=== PATIENT | male | born 1960 ===

== ENCOUNTER 2017-03-30 07:33 | Observation (INO) | payer OTHER ==
[~2017-03-30] VITALS: Ht 175.3 cm; Wt 78.5 kg
[2017-03-30 07:37] VITALS: BP 168/98; PULSE 60; RESP 16; TEMP 98; O2SAT 98
[2017-03-30] MEDS ORDERED: SODIUM CHLORIDE 0.9% FLUSH 10 ML FLUSH IVF PRN (07:45)
--- NOTE | 2017-03-30 07:49 | PD ---
HPI Chief Complaint: chest pain Time Seen by Provider: 07:36 Travel History International Travel<30 days: No Contact w/Intl Traveler<30days: No History of Present Illness HPI 56 y/o male presents with central chest pain that started this morning and lasted a couple minutes. He states he has had a couple episodes a week of this over the past couple of months. He states he has not seen a physician for this. He denies any prior cardiac workup. He denies taking an aspirin today. His cardiac risk factors are high cholesterol and age. He denies specific modifying factors. He denies any other concurrent complaints. He does note having stress currently. PFSH Past Medical History High Cholesterol: Yes Past Surgical History Other Surgery: Yes (carotid) Family History Narrative Family History high cholesterol and hypertension Family Myocardial Infarction: No Social History Tobacco Use: No Substance Use: No Allergies-Medications (Allergen,Severity, Reaction): Coded Allergies: Bdisexm-Aer-Cpt Reductase Inhibitor (Verified Allergy, Unknown, 03/30/17) Reported Meds & Prescriptions Reported Meds & Active Scripts Active No Active Prescriptions or Reported Medications Review of Systems Except as stated in HPI: all other systems reviewed are Neg Physical Exam Narrative GENERAL: Well-nourished, well-developed patient. Well-appearing SKIN: Warm and dry. HEAD: Normocephalic and atraumatic. EYES: No injection or drainage. ENT: No nasal drainage noted. NECK: Supple, trachea midline. CARDIOVASCULAR: Regular rate and rhythm RESPIRATORY: Breath sounds equal bilaterally. No accessory muscle use. GASTROINTESTINAL: Abdomen soft, non-tender, nondistended. EXTREMITIES: No significant edema NEUROLOGICAL: Awake and alert. Motor and sensory grossly within normal limits. Normal speech. Data Data Last Documented VS Vital Signs Date Time Temp Pulse Resp B/P (MAP) Pulse Ox O2 Delivery O2 Flow Rate FiO2 03/30/17 09:49 99 Room Air 03/30/17 09:49 64 16 03/30/17 07:37 98.0 Orders Orders Electrocardiogram (03/30/17 07:44) Ckmb (Isoenzyme) Profile (03/30/17 07:44) Complete Blood Count With Diff (03/30/17 07:44) Comprehensive Metabolic Panel (03/30/17 07:44) Magnesium (Mg) (03/30/17 07:44) Prothrombin Time / Inr (Pt) (03/30/17 07:44) Act Partial Throm Time (Ptt) (03/30/17 07:44) Troponin I (03/30/17 07:44) Chest, Single Ap (03/30/17 07:44) Ecg Monitoring (03/30/17 07:44) Bilateral Bp Monitoring (03/30/17 07:44) Iv Access Insert/Monitor (03/30/17 07:44) Oximetry (03/30/17 07:44) Sodium Chloride 0.9% Flush (Ns Flush) (03/30/17 07:45) CKMB (03/30/17 07:40) CKMB% (03/30/17 07:40) Ct Pulmonary Angiogram (03/30/17 ) Iohexol 350 Inj (Omnipaque 350 Inj) (03/30/17 09:37) Admit Order (Ed Use Only) (03/30/17 10:01) Labs Laboratory Tests Test 03/30/17 07:40 White Blood Count 4.7 TH/MM3 Red Blood Count 5.43 MIL/MM3 Hemoglobin 15.6 GM/DL Hematocrit 48.8 % Mean Corpuscular Volume 89.9 FL Mean Corpuscular Hemoglobin 28.8 PG Mean Corpuscular Hemoglobin Concent 32.0 % Red Cell Distribution Width 13.0 % Platelet Count 196 TH/MM3 Mean Platelet Volume 7.7 FL Neutrophils (%) (Auto) 56.6 % Lymphocytes (%) (Auto) 30.1 % Monocytes (%) (Auto) 8.9 % Eosinophils (%) (Auto) 3.1 % Basophils (%) (Auto) 1.3 % Neutrophils # (Auto) 2.7 TH/MM3 Lymphocytes # (Auto) 1.4 TH/MM3 Monocytes # (Auto) 0.4 TH/MM3 Eosinophils # (Auto) 0.1 TH/MM3 Basophils # (Auto) 0.1 TH/MM3 CBC Comment DIFF FINAL Differential Comment Prothrombin Time 10.7 SEC Prothromb Time International Ratio 1.1 RATIO Activated Partial Thromboplast Time 24.2 SEC Blood Urea Nitrogen 13 MG/DL Creatinine 0.94 MG/DL Random Glucose 98 MG/DL Total Protein 7.5 GM/DL Albumin 4.0 GM/DL Calcium Level 8.9 MG/DL Magnesium Level 2.0 MG/DL Alkaline Phosphatase 95 U/L Aspartate Amino Transf (AST/SGOT) 21 U/L Alanine Aminotransferase (ALT/SGPT) 26 U/L Total Bilirubin 0.3 MG/DL Sodium Level 140 MEQ/L Potassium Level 3.8 MEQ/L Chloride Level 104 MEQ/L Carbon Dioxide Level 29.1 MEQ/L Anion Gap 7 MEQ/L Estimat Glomerular Filtration Rate 83 ML/MIN Total Creatine Kinase 132 U/L Creatine Kinase MB 0.9 NG/ML Troponin I LESS THAN 0.02 NG/ML MDM Medical Decision Making Medical Screen Exam Complete: Yes Emergency Medical Condition: Yes Medical Record Reviewed: Yes (past history confirmed) Interpretation(s) EKG is sinus rhythm without STEMI criteria CBC & BMP Diagram 03/30/17 07:40 Total Protein 7.5, Albumin 4.0, Calcium Level 8.9, Magnesium Level 2.0, Alkaline Phosphatase 95, Aspartate Amino Transf (AST/SGOT) 21, Alanine Aminotransferase (ALT/SGPT) 26, Total Bilirubin 0.3 Last 24 hours Impressions Chest X-Ray 03/30/17 0744 Signed Impressions: Service Date/Time: Thursday, March 30, 2017 08:03 - CONCLUSION: Spiculated density involving the left hilum warrants further characterization utilizing a CT scan of the thorax with IV contrast. Otherwise, unremarkable exam. Jaylen Nixon Jr., MD CT Angiography 03/30/17 0000 Signed Impressions: Service Date/Time: Thursday, March 30, 2017 09:25 - CONCLUSION: 1. No acute infiltrate or pulmonary embolus to explain current clinical symptoms. 2. Minimal dependent atelectatic changes in both hemithoraces. Atherosclerotic calcification of the coronary arteries. Rajan White MD Discussed with radiologist that read chest x-ray and states given looking at CT there is no mass or density and this is likely where the pulmonary vein and artery are overlapping Differential Diagnosis Cardiac, musculoskeletal, gastritis Narrative Course Will check blood work, chest x-ray, EKG and dose with aspirin and reevaluate. Chest pain-free now. Patient updated about chest x-ray will proceed with CT chest Patient updated about CT and agrees to chest pain center observation Physician Communication Physician Communication dr ybarra agrees to admit Diagnosis Primary Impression: Chest pain Qualified Codes: R07.9 - Chest pain, unspecified Admitting Information Admitting Physician Requests: Observation Scripts No Active Prescriptions or Reported Meds Na Castañeda MD Mar 30, 2017 07:49
[2017-03-30 08:09] LABS: CHLORIDE 104 MEQ/L (98-107); POTASSIUM 3.8 MEQ/L (3.5-5.1); SODIUM (NA) 140 MEQ/L (136-145)
[2017-03-30 08:13] LABS: ANION GAP 7 MEQ/L (5-15); APTT (PATIENT) 24.2 SEC (24.3-30.1); BICARBONATE 29.1 MEQ/L (21.0-32.0); BLOOD UREA NITROGEN 13 MG/DL (7-18); INTERNATIONAL NORMALIZED RATIO 1.1 RATIO; PROTHROMBIN TIME - PATIENT 10.7 SEC (9.8-11.6)
[2017-03-30 08:16] LABS: ALT (GPT) 26 U/L (12-78)
[2017-03-30 08:17] LABS: AST (GOT) 21 U/L (15-37); GLOMERULAR FILTRATION RATE 83 ML/MIN (>89)
[2017-03-30 08:18] LABS: TOTAL BILIRUBIN ADULT 0.3 MG/DL (0.2-1.0)
[2017-03-30 08:19] LABS: ALKALINE PHOSPHATASE 95 U/L (45-117); CREATINE KINASE 132 U/L (39-308)
[2017-03-30 08:31] LABS: CKMB 0.9 NG/ML (0.5-3.6)
[2017-03-30 08:42] LABS: AUTOMATED NEUTROPHIL # 2.7 TH/MM3 (1.8-7.7); BASOPHIL # 0.1 TH/MM3 (0-0.2); BASOPHIL % 1.3 % (0.0-2.0); EOSINOPHIL # 0.1 TH/MM3 (0-0.4); EOSINOPHIL % 3.1 % (0.0-4.0); HEMATOCRIT 48.8 % (39.0-51.0); HEMO FLAGS DIFF FINAL; LYMPH % 30.1 % (9.0-44.0); LYMPHOCYTE # 1.4 TH/MM3 (1.0-4.8); MEAN CELL VOLUME 89.9 FL (80.0-100.0); MEAN CORPUSCULAR HEMOGLOBIN 28.8 PG (27.0-34.0); MONO % 8.9 % (0.0-8.0); NEUT % 56.6 % (16.0-70.0); PLATELET COUNT 196 TH/MM3 (150-450); RED BLOOD COUNT 5.43 MIL/MM3 (4.50-5.90); WHITE BLOOD COUNT 4.7 TH/MM3 (4.0-11.0)
--- NOTE | 2017-03-30 08:57 | RADRPT ---
EXAM DATE/TIME: 03/30/2017 08:03 [facility] COMPARISON: No previous studies available for comparison. INDICATIONS : Left upper chest pain. MEDICAL HISTORY : Hypercholesterolemia. SURGICAL HISTORY : Carotid. ENCOUNTER: Initial ACUITY: 1 day PAIN SCORE: 6/10 LOCATION: Left upper chest FINDINGS: A single frontal view the chest shows a 2.4 cm spiculated nodule like density involving the superior hilum on the left. The lungs are otherwise clear. No infiltrates or effusions. Heart normal size. Bon y structures are unremarkable. CONCLUSION: Spiculated density involving the left hilum warrants further characterization utilizing a CT scan of the thorax with IV contrast. Otherwise, unremarkable exam. Jaylen Nixon Jr., MD on March 30, 2017 at 8:53 Board Certified Radiologist. This report was verified electronically.
[2017-03-30] MEDS ORDERED: IOHEXOL 350 MG/ML 10 ML VIAL (for RAD DIAG) IVCONTRAST ONE (09:37)
--- NOTE | 2017-03-30 09:45 | RADRPT ---
EXAM DATE/TIME: 03/30/2017 09:25 [facility] COMPARISON: No previous studies available for comparison. INDICATIONS : Left chest pain intermittently for 2 months, worse today. IV CONTRAST: 75 cc Omnipaque 350 (iohexol) IV RADIATION DOSE: 13.14 CTDIvol (mGy) MEDICAL HISTORY : None SURGICAL HISTORY : Carotid endarterectomy. ENCOUNTER: Initial ACUITY: 2 months PAIN SCALE: 6/10 LOCATION: Left chest TECHNIQUE: Volumetric scanning of the chest was performed using a pulmonary embolism protocol MIP images were re constructed. Using automated exposure control and adjustment of the mA and/or kV according to patien t size, radiation dose was kept as low as reasonably achievable to obtain optimal diagnostic quality images. DICOM format image data is available electronically for review and comparison. Follow-up recommendations for detected pulmonary nodules are based at a minimum on nodule size and pa tient risk factors according to Fleischner Society Guidelines. FINDINGS: PULMONARY ARTERIES: No filling defects are seen in the pulmonary arteries through the segmental level. LUNGS: There is no consolidation or pneumothorax . No concerning pulmonary nodule is visualized. Minimal de pendent symmetric atelectasis. PLEURAE: There is no pleural thickening or pleural effusion. MEDIASTINUM: There is good visualization of the great vessels of the middle mediastinum. No evidence of mediastin al or hilar adenopathy/mass. Atherosclerotic calcification of the coronary arteries. MUSCULOSKELETAL: Within normal limits for patient age. MISCELLANEOUS: The visualized upper abdominal organs demonstrate no acute abnormality. CONCLUSION: 1. No acute infiltrate or pulmonary embolus to explain current clinical symptoms. 2. Minimal dependent atelectatic changes in both hemithoraces. Atherosclerotic calcification of the c oronary arteries. Rajan White MD on March 30, 2017 at 9:39 Board Certified Radiologist. This report was verified electronically.
[2017-03-30 09:49] VITALS: BP 145/92; PULSE 64; RESP 16; O2SAT 99
[2017-03-30] MEDS ORDERED: SODIUM CHLOR 0.9% 1000 ML INJ 1,000 ML IV SCH (10:08)
[2017-03-30] MEDS ORDERED: LACTULOSE SYRUP 20 GM/30 ML CUP PO PRN (10:15)
[2017-03-30] MEDS ORDERED: ACETAMINOPHEN 325 MG TAB PO PRN (10:15)
[2017-03-30] MEDS ORDERED: NALOXONE HCL 0.4 MG/ML AMP IV PUSH PRN (10:15)
[2017-03-30] MEDS ORDERED: ONDANSETRON HCL 4 MG/2 ML VIAL IVP PRN (10:15)
[2017-03-30] MEDS ORDERED: MAGNESIUM HYDROXIDE SUSP 30 ML CUP PO PRN (10:15)
[2017-03-30] MEDS ORDERED: BISACODYL 10 MG SUPP RECTAL PRN (10:15)
[2017-03-30] MEDS ORDERED: SODIUM CHLORIDE 0.9% FLUSH 10 ML FLUSH IV FLUSH PRN (10:15)
[2017-03-30] MEDS ORDERED: SENNOSIDES 8.6 MG TAB PO PRN (10:15)
[2017-03-30 11:15] VITALS: BP 174/79; PULSE 57; RESP 18; TEMP 96.7; O2SAT 98
[2017-03-30 12:30] VITALS: BP 142/84; PULSE 53
--- NOTE | 2017-03-30 13:43 | HHI.HP ---
[facility] Service [facility] ([place], [place])ists Primary Care Physician Carlos Dukes MD Admission Diagnosis chest pain Diagnoses: (1) Chest pain Chief Complaint: Chest pain Travel History International Travel<30 Days: No Contact w/Intl Traveler <30 Da: No Traveled to Known Affected Are: No History of Present Illness 56-year-old male with known history of hyperlipidemia who presented to hospital because of chest discomfort. Patient indicates that he is been having intermittent chest discomfort located in the left sternal border described as a sharp stabbing discomfort that lasts for approximately 1-2 minutes at a time. Can happen during exertion or at rest. Without any associated nausea, vomiting, shortness of breath, dyspnea, lightheadedness, dizziness, diaphoresis, radiation of pain to the neck, shoulder, arm. Patient is in rather great physical condition. He does work at approximate 4 times weekly at [employer]. He denies any episodes during exercise or activity. Patient states that he was stressed out coming to work this morning and he had the same pain that continued longer than the usual 1-2 minutes. Since he was close to the hospital he decided to come in and get it checked out. Patient had unremarkable workup with risk factors to include age, family history, hyperlipidemia. Is recommended by ER physician that the patient be observed in the chest pain center. Review of Systems Cardiovascular: COMPLAINS OF: Chest pain Except as stated in HPI: all other systems reviewed are Neg Past Family Social History Past Medical History Hyperlipidemia Past Surgical History Left carotid endarterectomy Reported Medications Reported Meds & Active Scripts Active No Active Prescriptions or Reported Medications Allergies: Coded Allergies: Ozgntry-Bmc-Bfq Reductase Inhibitor (Verified Allergy, Unknown, 03/30/17) Family History Reviewed is significant for family history of hypertension and hyperlipidemia Social History Patient quit smoking 15 years ago, prior to that he smoked one pack a cigarettes a day since he was 15 years old. Does drink alcohol occasionally. Denies any illicit drugs Physical Exam Vital Signs Vital Signs Date Time Temp Pulse Resp B/P (MAP) Pulse Ox O2 Delivery O2 Flow Rate FiO2 03/30/17 12:30 53 142/84 (103) 03/30/17 11:15 96.7 57 18 174/79 (110) 98 03/30/17 11:10 03/30/17 09:49 99 Room Air 03/30/17 09:49 99 Room Air 03/30/17 09:49 64 16 145/92 (109) 99 Room Air 03/30/17 09:49 64 16 145/92 (109) 99 Room Air 03/30/17 07:37 98.0 60 16 168/98 (121) 98 Physical Exam GENERAL: Well-developed, well-nourished, in no acute distress. alert and orientated HEENT: Head is normocephalic without any lesions or masses noted. Facial features are symmetric. Eyes: Pupils equal round reactive to light. Extraocular muscles are intact. Conjunctivae were clear. Oropharyngeal: Pharynx without any erythema edema. Tongue is midline without deviation. Buccal mucosa is moist without any masses or lesions NECK: Supple without any masses. Trachea midline no deviation. No JVD, no bruits are appreciated CARDIAC: Regular rhythm, regular rate. S1/S2 are heard. No murmurs gallops or rubs. LUNGS: Clear to auscultation bilaterally. No wheeze, rhonchi or rales. No use of accessory muscles on inspiration or expiration. ABDOMEN: Soft, nontender. Nondistended. Bowel sounds heard in all 4 quadrants. No organomegaly or masses. Negative rebound, negative guarding EXTREMITIES: No edema, pulses are equal bilaterally. No cyanosis or clubbing NEUROLOGY: Mood and affect appear appropriate. Cranial nerves II through XII grossly intact. Muscle strength 5/5 in upper and lower extremities bilaterally. Deep tendon reflexes are 2+ in upper and lower extremities bilaterally. Laboratory Laboratory Tests Test 03/30/17 07:40 03/30/17 10:40 03/30/17 12:50 White Blood Count 4.7 Red Blood Count 5.43 Hemoglobin 15.6 Hematocrit 48.8 Mean Corpuscular Volume 89.9 Mean Corpuscular Hemoglobin 28.8 Mean Corpuscular Hemoglobin Concent 32.0 Red Cell Distribution Width 13.0 Platelet Count 196 Mean Platelet Volume 7.7 Neutrophils (%) (Auto) 56.6 Lymphocytes (%) (Auto) 30.1 Monocytes (%) (Auto) 8.9 Eosinophils (%) (Auto) 3.1 Basophils (%) (Auto) 1.3 Neutrophils # (Auto) 2.7 Lymphocytes # (Auto) 1.4 Monocytes # (Auto) 0.4 Eosinophils # (Auto) 0.1 Basophils # (Auto) 0.1 CBC Comment DIFF FINAL Differential Comment Prothrombin Time 10.7 Prothromb Time International Ratio 1.1 Activated Partial Thromboplast Time 24.2 Blood Urea Nitrogen 13 Creatinine 0.94 Random Glucose 98 Total Protein 7.5 Albumin 4.0 Calcium Level 8.9 Magnesium Level 2.0 Alkaline Phosphatase 95 Aspartate Amino Transf (AST/SGOT) 21 Alanine Aminotransferase (ALT/SGPT) 26 Total Bilirubin 0.3 Sodium Level 140 Potassium Level 3.8 Chloride Level 104 Carbon Dioxide Level 29.1 Anion Gap 7 Estimat Glomerular Filtration Rate 83 Total Creatine Kinase 132 Creatine Kinase MB 0.9 Troponin I LESS THAN 0.02 LESS THAN 0.02 LESS THAN 0.02 Result Diagram: 03/30/17 0740 03/30/17 0740 Imaging Last Impressions Chest X-Ray 03/30/17 0744 Signed Impressions: Service Date/Time: Thursday, March 30, 2017 08:03 - CONCLUSION: Spiculated density involving the left hilum warrants further characterization utilizing a CT scan of the thorax with IV contrast. Otherwise, unremarkable exam. Jaylen Nixon Jr., MD CT Angiography 03/30/17 0000 Signed Impressions: Service Date/Time: Thursday, March 30, 2017 09:25 - CONCLUSION: 1. No acute infiltrate or pulmonary embolus to explain current clinical symptoms. 2. Minimal dependent atelectatic changes in both hemithoraces. Atherosclerotic calcification of the coronary arteries. MD Edward Duvalli VTE Risk Assessment Caprini VTE Risk Assessment: No/Low Risk (score <= 1) Caprini Risk Assessment Model Point Value = 1 Point Value = 2 Point Value = 3 Point Value = 5 Age 41-60 Minor surgery BMI > 25 kg/m2 Swollen legs Varicose veins or History of unexplained or recurrent spontaneous Oral contraceptives or hormone replacement Sepsis (< 1 month) Serious lung disease, including pneumonia (< 1 month) Abnormal pulmonary function Acute myocardial infarction Congestive heart failure (< 1 month) History of inflammatory bowel disease Medical patient at bed rest Age 61-74 Arthroscopic surgery Major open surgery (> 45 min) Laparoscopic surgery (> 45 min) Malignancy Confined to bed (> 72 hours) Immobilizing plaster cast Central venous access Age >= 75 History of VTE Family history of VTE Factor V Leiden Prothrombin [id number] Lupus anticoagulant Anticardiolipin antibodies Elevated serum homocysteine Heparin-induced thrombocytopenia Other congenital or acquired thrombophilia Stroke (< 1 month) Elective arthroplasty Hip, pelvis, or leg fracture Acute spinal cord injury (< 1 month) Prophylaxis Regimen Total Risk Factor Score Risk Level Prophylaxis Regimen 0-1 Low Early ambulation 2 Moderate Order ONE of the following: *Sequential Compression Device (SCD) *Heparin 5000 units SQ BID 3-4 Higher Order ONE of the following medications: *Heparin 5000 units SQ TID *Enoxaparin/Lovenox 40 mg SQ daily (WT < 150 kg, CrCl > 30 mL/min) *Enoxaparin/Lovenox 30 mg SQ daily (WT < 150 kg, CrCl > 10-29 mL/min) *Enoxaparin/Lovenox 30 mg SQ BID (WT < 150 kg, CrCl > 30 mL/min) AND/OR *Sequential Compression Device (SCD) 5 or more Highest Order ONE of the following medications: *Heparin 5000 units SQ TID (Preferred with Epidurals) *Enoxaparin/Lovenox 40 mg SQ daily (WT < 150 kg, CrCl > 30 mL/min) *Enoxaparin/Lovenox 30 mg SQ daily (WT < 150 kg, CrCl > 10-29 mL/min) *Enoxaparin/Lovenox 30 mg SQ BID (WT < 150 kg, CrCl > 30 mL/min) AND *Sequential Compression Device (SCD) Assessment and Plan Assessment and Plan Chest pain, atypical Patient with increased risk factor to include age, male, hyperlipidemia, family history Patient has been ruled out for acute coronary event with serial cardiac enzymes which are negative, Serial EKGs have been performed and reviewed by myself that shows sinus bradycardia with first-degree AV block Exercise stress test was performed and reviewed by retail chain store area supervisor Dr. Barth who indicated no signs of ischemia We'll start aspirin, nitroglycerin as needed Hyperlipidemia, untreated Counseled patient on treatment, however patient states that he has had adverse reactions to statins DVT prevention low risk, early ambulation Discharge status Discharge home in stable condition Activity: Ad alan. Diet: Healthy heart diet Medications per medication reconciliation Follow-up with primary medical doctor in one week Problem Qualifiers (1) Chest pain: Qualified Codes: R07.9 - Chest pain, unspecified Misha Ordoñez Mar 30, 2017 13:43
[2017-03-30] MEDS ORDERED: ASPIRIN EC 81 MG TABEC PO SCH (13:45)
[2017-03-30] MEDS ORDERED: NITROGLYCERIN 0.4 MG SL 25 TABS/BTL SL PRN (13:45)
--- NOTE | 2017-03-30 14:20 | EKG ---
Date Performed: 03/30/2017 Time Performed: 07:37:25 PTAGE: 56 years EKG: Sinus rhythm INCOMPLETE RIGHT BUNDLE BRANCH BLOCK BORDERLINE ECG NO PREVIOUS TRACING DOCTOR: Kobi Barth Interpretating Date/Time 03/30/2017 14:18:35
--- NOTE | 2017-03-30 14:23 | EKG ---
Date Performed: 03/30/2017 Time Performed: 12:44:45 PTAGE: 56 years EKG: SINUS BRADYCARDIA WITH FIRST DEGREE AV BLOCK ABNORMAL ECG PREVIOUS TRACING : 03/30/2017 10.35 Since previous tracing, no significant change noted DOCTOR: Kobi Barth Interpretating Date/Time 03/30/2017 14:21:59
--- NOTE | 2017-03-30 15:06 | HHI.DCPOC ---
Discharge Care Plan Diagnosis: (1) Chest pain Goals to Promote Your Health * To prevent worsening of your condition and complications * To maintain your health at the optimal level Directions to Meet Your Goals Take your medications as prescribed Follow your dietary instruction Follow activity as directed Keep your appointments as scheduled Take your immunizations and boosters as scheduled If your symptoms worsen call your PCP, if no PCP go to Urgent Care Center or Emergency Room Smoking is Dangerous to Your Health. Avoid second hand smoke Call the 24-hour hour crisis hotline for domestic abuse at Misha Ordoñez Mar 30, 2017 15:06
[2017-03-30] MEDS ORDERED: SODIUM CHLORIDE 0.9% FLUSH 10 ML FLUSH IV FLUSH SCH (21:00)
--- NOTE | 2017-03-30 22:13 | EKG ---
Date Performed: 03/30/2017 Time Performed: 10:35:01 PTAGE: 56 years EKG: SINUS BRADYCARDIA WITH FIRST DEGREE AV BLOCK POSSIBLE RIGHT VENTRICULAR CONDUCTION DELAY AB NORMAL ECG PREVIOUS TRACING : 03/30/2017 07.37 Compared to prior tracing no significant change DOCTOR: Jaden Meza Interpretating Date/Time 03/30/2017 22:12:17
--- NOTE | 2017-03-31 13:24 | TR ---
Date Performed: 03/30/2017 Time Performed: 14:31:45 DOCTOR: Jesus Rodarte DRUG LIST: CLINICAL HISTORY: REASON FOR TEST: REASON FOR ENDING: Completed Protocol OBSERVATION: Arrhythmia: None Chest Pain: None CONCLUSION: Patient tolerated CHRISSY protocol with Total Exercise Time=10:20 Maximum FW=217 % Max HR Achieved=91.0% Maximum DT=427/78, Testing stopped secondfary to goals acheived. During peak exerc ise patient had ST depressions in inferior/lateral leads with flat slow upsloping ST segments. Patien t was asymptomatic. HR and BP appropriate response to exercise. Recovery period, Patient was asymptom atic, HR and BP returned to baseline COMMENTS: Conclusion: Normal treadmill exercise. No evidence of ischemia.
== END 2017-03-30 15:15 | disposition home or self-care (01) ==
LOC: PHED 07:33 → PHEDA 10:01 → PH3A 11:18
PROVIDERS: ADMIT Hospitalist; ATTEND Hospitalist
DX: R07.9 Chest pain, unspecified (principal); I44.30 Unspecified atrioventricular block; I25.10 Atherosclerotic heart disease of native coronary artery without angina pectoris; E78.5 Hyperlipidemia, unspecified; Z87.891 Personal history of nicotine dependence
CPT/HCPCS: 71010; 71275; 80053; 82550; 82552; 83735; 84484; 85025; 85610; 85730; 93005; 93017; 99285; G0378; J7030; Q9967